=== PATIENT | male | born 1955 ===

== ENCOUNTER 2017-06-14 12:34 | Emergency (ER) | payer OTHER ==
[2017-06-14 12:35] VITALS: BMI 29.8
[2017-06-14] MEDS ORDERED: Lidocaine 5% Patch TD STA (13:21)
--- NOTE | 2017-06-14 13:24 | C.PDOC ---
History Of Present Illness LOWER BACK PAIN X 4 DAYS. pain over buttock/sacral area. NO TRAUMA LOCALIZED WORSE W MOVEMENT. PS OCC R SCIATICA PAIN BUT CURRENT PAIN "DIFFERENT" FROM PRIOR. NO ASSOC FEVER, WEAK NUMB, URINARY SX. ALSO CONCERNED FOR ELEVATED BP. PS ON CURRENT BP MEDS X 2 MONTHS, UNK HOW WELL CONTROLLED W NEW MEDS. PENDING PMD EVAL NEXT WEEK EXAM MILD DIST NONTOXIC BACK +SPASM LOWER BACK SACRAL AREA LIMITED FULL EXTENSION ATRAUM SKIN NEG NEURO NEG GAIT WNL MDM ON BYSTOLIC 10 MG QD AND LOSARTAN/HCTZ 100/25 QD. ADVISED INCREASE BYSTOLIC TO 20 MG QD PENDING PMD REEVAL Time Seen by Provider: 06/14/17 13:06 Chief Complaint (Nursing): Back Pain History Per: Patient History/Exam Limitations: no limitations Onset/Duration Of Symptoms: Days (4) Current Symptoms Are (Timing): Still Present Previous Symptoms: Back Pain (right sided sciatica) Exacerbating Factor(s): Movement Past Medical History Reviewed: Historical Data, Nursing Documentation, Vital Signs Vital Signs: Last Vital Signs Temp 97.6 F 06/14/17 12:51 Pulse 61 06/14/17 12:51 Resp 20 06/14/17 12:51 BP 171/114 H 06/14/17 12:51 Pulse Ox 97 06/14/17 13:35 - Medical History PMH: CVA, Diabetes, HTN, Hypercholesterolemia, TIA (october 02, 2014) Denies: Chronic Kidney Disease Surgical History: Appendectomy, Endoscopy - [facility] Procedures OCCUPATIONAL THERAPY (11/10/14) OTHER SPEECH THERAPY (11/05/14) PHYSICAL THERAPY NEC (11/05/14) RESECTION OF APPENDIX, PERCUTANEOUS ENDOSCOPIC APPROACH (12/10/15) Family History: States: No Known Family Hx, Unknown Family Hx - Social History Hx Tobacco Use: Yes Hx Alcohol Use: Yes (social) Hx Substance Use: No - Immunization History Hx Tetanus Toxoid Vaccination: No Hx Influenza Vaccination: Yes Hx Pneumococcal Vaccination: No Review Of Systems Constitutional: Negative for: Fever Genitourinary: Negative for: Dysuria, Hematuria Musculoskeletal: Positive for: Back Pain Neurological: Negative for: Weakness, Numbness Physical Exam - Physical Exam Appears: Non-toxic, Other (mild distress) Skin: Normal Color Head: Atraumatic, Normacephalic Neck: Supple Back: Muscle Spasm (lower back), Other (sacral area with limited full extension) Extremity: Normal ROM, No Deformity, No Swelling Neurological/Psych: Oriented x3, Normal Speech, Normal Cognition, Normal Motor, Normal Sensation Gait: Steady ED Course And Treatment O2 Sat by Pulse Oximetry: 97 (RA) Pulse Ox Interpretation: Normal - Other Rad SACRUM X-Ray: Interpreted by Me (NEG) Disposition Counseled Patient/Family Regarding: Studies Performed, Diagnosis, Need For Followup, Rx Given - Disposition Referrals: YOUR,PMD [Other] Disposition: HOME/ ROUTINE Disposition Time: 13:54 Condition: IMPROVED Additional Instructions: TAKE BYSTOLIC 2 TABS DAILY, CONTINUE LOSARTAN/HCTZ PRESCRIBED. FOLLOW UP WITH YOUR PMD SCHEDULED. Prescriptions: Acetaminophen [Tylenol Extra Strength] 2 tab PO Q6 #30 tablet Cyclobenzaprine [Flexeril] 10 mg PO TID #15 tab Lidocaine 5% [Lidoderm] 1 ea TD PRN PRN #10 patch PRN Reason: Pain, Moderate (4-7) Naproxen 500 mg PO BID #30 tab Instructions: Acute Low Back Pain (ED) Forms: [employer] (Macedonian) Print Language: CHINESE - Clinical Impression Clinical Impression: Low back pain - Scribe Statement The provider has reviewed the documentation as recorded by the Juanjose Villegas Provider Attestation: All medical record entries made by the Juanjose were at my direction and personally dictated by me. I have reviewed the chart and agree that the record accurately reflects my personal performance of the history, physical exam, medical decision making, and the department course for this patient. I have also personally directed, reviewed, and agree with the discharge instructions and disposition.
[2017-06-14] MEDS ORDERED: Lidocaine 5% Patch TD ONE (13:28)
[2017-06-14 14:13] VITALS: BP 180/70; PULSE 58; RESP 18; TEMP 97; O2SAT 99
--- NOTE | 2017-06-14 14:52 | RAD ---
PROCEDURE: Radiographs of the Sacrum and Coccyx HISTORY: PAIN COMPARISON: None available. TECHNIQUE: Frontal and lateral views of the sacrum and coccyx FINDINGS: BONES: Sacrum and coccyx unremarkable. No fracture or focal lesion. SACROILIAC JOINTS: Trace inferior right sclerotic arthrosis noted OTHER FINDINGS: Bilateral hip mild osteoarthrosis noted. Right hemipelvic phleboliths. Minimal right L5-S1 and lesser left L5-S1 facet hypertrophic arthrosis. IMPRESSION: No sacral coccygeal fracture or lytic lesions. Bilateral hip, bilateral L5-S1 facet an asymmetrical inferior right S site trace sclerotic arthrosis
== END 2017-06-14 14:14 | disposition home or self-care (01) ==
LOC: C.ER 12:34
DX: M54.5 Low back pain (principal)
CPT/HCPCS: 72220; 96372; 99284; J1885

== ENCOUNTER 2017-08-01 07:43 | Day surgery (SDC) | payer OTHER ==
[2017-08-01 08:09] VITALS: BMI 29.0
[2017-08-01] MEDS ORDERED: Lactated Ringer's 1,000 ML IV ONE (09:53)
[2017-08-01] MEDS ORDERED: Midazolam 2 MG/2 ML VIAL ONE (10:42)
[2017-08-01] MEDS ORDERED: Propofol 10 mg/ml Inj (20 ML) ONE ×2 (10:42→11:22)
[2017-08-01 11:42] VITALS: TEMP 96.9; O2SAT 100
[2017-08-01 13:15] VITALS: BP 152/99; PULSE 64; RESP 13
== END 2017-08-01 12:40 | disposition home or self-care (01) ==
LOC: C.ENDO 07:43
PROVIDERS: ATTEND Internal Medicine Gastroenterology
DX: Z12.11 Encounter for screening for malignant neoplasm of colon (principal); D12.5 Benign neoplasm of sigmoid colon; K64.8 Other hemorrhoids; K57.90 Diverticulosis of intestine, part unspecified, without perforation or abscess without bleeding
CPT/HCPCS: 45380; 45385; 88305; J0360; J2250; J2704; J3010; J7120

== ENCOUNTER 2018-02-06 08:39 | Day surgery (SDC) | payer OTHER ==
[2018-02-06] MEDS ORDERED: Lactated Ringer's 500 ML IV ONE (11:56)
--- NOTE | 2018-02-06 11:56 | CP.SDSHP ---
Same Day Surgery H & P - History Proposed Procedure: colonoscopy Pre-Op Diagnosis: history of polyps - Previous Medical/Surgical History Cardiac: Hypertension Endocrine/Metabolic: Diabetes - Allergies Allergies: Allergies No Known Allergies Allergy (Verified 06/14/17 12:55) - Physical Exam General Appearance: NAD Vital Signs: Vital Signs 02/06/18 09:05 Temperature 97.3 F L Pulse Rate 57 L Respiratory 18 Rate Blood Pressure 152/101 H O2 Sat by Pulse 97 Oximetry Mental Status: Alert & Oriented x3 Neuro: WNL Heart: WNL Lungs: WNL GI: WNL - {Optional Preform as Required} Abdomen: WNL - Impression Pt. Evaluated Today:Candidate for Anesthesia & Procedure: Yes - Date & Time Date: 02/06/18 Time: 11:56 Short Stay Discharge - Short Stay Discharge Admitting Diagnosis/Reason for Visit: H/O/ COLON POLYPS Disposition: HOME/ ROUTINE
[2018-02-06] MEDS ORDERED: Propofol 10 mg/ml Inj (20 ML) ONE (12:03)
[2018-02-06] MEDS ORDERED: Midazolam 2 MG/2 ML VIAL ONE (12:03)
[2018-02-06 14:26] VITALS: TEMP 97
[2018-02-06 14:33] VITALS: O2SAT 98
[2018-02-06 14:40] VITALS: BP 166/103; PULSE 60; RESP 18
== END 2018-02-06 13:45 | disposition home or self-care (01) ==
LOC: C.ENDO 08:39
PROVIDERS: ATTEND Internal Medicine Gastroenterology
DX: D12.0 Benign neoplasm of cecum (principal); D12.2 Benign neoplasm of ascending colon; D12.3 Benign neoplasm of transverse colon; D12.5 Benign neoplasm of sigmoid colon; K64.8 Other hemorrhoids
CPT/HCPCS: 45380; 82948; 88305; J2250; J2704; J7120

== ENCOUNTER 2018-06-10 15:32 | Emergency (ER) | payer OTHER ==
[2018-06-10 15:33] VITALS: BMI 29.0
[2018-06-10 16:02] VITALS: O2SAT 96
[2018-06-10 16:19] LABS: BASO # 0.1 K/uL (0.0-0.2); BASO % 0.4 % (0.0-2.0); EOS % 0.2 % (0.0-4.0); HEMOGLOBIN 16.1 g/dL (12.0-18.0); LYMPH # 1.2 K/uL (1.0-4.3); LYMPH % 10.3 % (20.0-40.0); MEAN CELL VOLUME 86.4 fL (80.0-94.0); MEAN CORPUSCULAR HEMOGLOBIN 28.9 pg (27.0-31.0); MEAN CORPUSCULAR HGB CONC 33.4 g/dL (33.0-37.0); MEAN PLATELET VOLUME 10.7 fL (7.2-11.7); MONO # 1.3 K/uL (0.0-0.8); MONO % 11.9 % (0.0-10.0); NEUT # 8.6 K/uL (1.8-7.0); NEUT % 77.2 % (50.0-75.0); NRBC % 0.1 % (0.0-2.0); RBC 5.58 Mil/uL (4.40-5.90); RED CELL DISTRIBUTION WIDTH 14.4 % (11.5-14.5)
[2018-06-10 16:27] LABS: WHITE BLOOD COUNT 11.2 K/uL (4.8-10.8)
[2018-06-10 16:36] LABS: ALB/GLOB RATIO 1.4 (1.0-2.1); ALBUMIN 4.5 g/dL (3.5-5.0); ALT/SGPT 21 U/L (21-72); AST/SGOT 19 U/L (17-59); BLOOD UREA NITROGEN 29 mg/dL (9-20); CALCIUM 9.7 mg/dl (8.6-10.4); GFR NON-AFRICAN AMERICAN 51
--- NOTE | 2018-06-10 16:49 | RAD ---
HISTORY: r/o infiltrate COMPARISON: Chest x-ray performed 12/09/15 TECHNIQUE: Chest, one view. FINDINGS: LUNGS: No focal consolidation. Please note that chest x-ray has limited sensitivity for the detection of pulmonary masses. PLEURA: No significant pleural effusion identified. No definite pneumothorax . CARDIOVASCULAR: Borderline cardiomegaly. Ectatic aorta. No significant atherosclerotic calcification present. OSSEOUS STRUCTURES: Degenerative changes of the spine. VISUALIZED UPPER ABDOMEN: Unremarkable. OTHER FINDINGS: None. IMPRESSION: No focal consolidation. Borderline cardiomegaly. Ectatic aorta.
[2018-06-10] MEDS ORDERED: Potassium Chloride 20 mEq ER Tab PO STA (17:32)
[2018-06-10] MEDS ORDERED: Potassium Chloride 20 mEq ER Tab PO ONE (17:41)
--- NOTE | 2018-06-10 18:16 | C.PDOC ---
History Of Present Illness 62 y/o male presents to ED with c/o intermittent dizziness for 3 weeks. Patient saw PMD for same complaints, given medications with no improvement. Patient denies nausea, vomiting, chest pain, sob, headache, blurry or double vision. No other physical complaints at this time. Time Seen by Provider: 06/10/18 15:57 Chief Complaint (Nursing): Dizziness/Lightheaded History Per: Patient History/Exam Limitations: no limitations Onset/Duration Of Symptoms: Days Current Symptoms Are (Timing): Still Present Past Medical History Reviewed: Historical Data, Nursing Documentation, Vital Signs Vital Signs: Last Vital Signs Temp 99.5 F 06/10/18 16:01 Pulse 104 H 06/10/18 16:01 Resp 20 06/10/18 16:01 BP 162/78 H 06/10/18 16:01 Pulse Ox 96 06/10/18 16:01 - Medical History PMH: CVA, Diabetes, Gastritis, HTN, Hypercholesterolemia, TIA (october 02, 2014) Surgical History: Appendectomy, Endoscopy - [facility] Procedures OCCUPATIONAL THERAPY (11/10/14) OTHER SPEECH THERAPY (11/05/14) PHYSICAL THERAPY NEC (11/05/14) RESECTION OF APPENDIX, PERCUTANEOUS ENDOSCOPIC APPROACH (12/10/15) Family History: States: No Known Family Hx - Social History Hx Tobacco Use: Yes Hx Alcohol Use: Yes (social) Hx Substance Use: No - Immunization History Hx Tetanus Toxoid Vaccination: No Hx Influenza Vaccination: Yes Hx Pneumococcal Vaccination: No Review Of Systems Constitutional: Negative for: Fever, Chills Cardiovascular: Negative for: Chest Pain Gastrointestinal: Negative for: Nausea, Vomiting, Abdominal Pain Neurological: Positive for: Dizziness. Negative for: Weakness, Numbness, Headache Physical Exam - Physical Exam Appears: Non-toxic, No Acute Distress Skin: Warm, Dry, No Rash Head: Atraumatic, Normacephalic Eye(s): bilateral: Normal Inspection (No nystagmus) Oral Mucosa: Moist Neck: Normal ROM, Supple Cardiovascular: Rhythm Regular Respiratory: Normal Breath Sounds, No Rales, No Rhonchi, No Wheezing Gastrointestinal/Abdominal: Soft, No Tenderness, No Guarding, No Rebound Extremity: Normal ROM, Capillary Refill (<2 seconds) Neurological/Psych: Oriented x3, Normal Speech, Normal Cognition, Normal Motor, Normal Sensation ED Course And Treatment - Laboratory Results Result Diagrams: 06/10/18 16:16 06/10/18 16:16 O2 Sat by Pulse Oximetry: 96 (RA) Pulse Ox Interpretation: Normal Disposition - Disposition Referrals: Alirio Fajardo, [Non-Staff] - Disposition: HOME/ ROUTINE Disposition Time: 17:40 Condition: GOOD Additional Instructions: STAN KAN, thank you for letting us take care of you today. The emergency medical care you received today was directed at your acute symptoms. If you were prescribed any medication, please fill it and take as directed. It may take several days for your symptoms to resolve. Return to the Emergency Department if your symptoms worsen, do not improve, or if you have any other problems. Please contact your doctor or call one of the physicians/clinics you have been referred to that are listed on the Patient Visit Information form that is included in your discharge packet. Bring any paperwork you were given at discharge with you along with any medications you are taking to your follow up visit. Our treatment cannot replace ongoing medical care by a primary care provider outside of the emergency department. Thank you for allowing the [facility] team to be part of your care today. Follow up with your primary care doctor this week for re-evaluation and further management. STAN KAN, priscilla por dejarnos cuidar de usted hoy. La atencin mdica de emergencia que recibi hoy se dirigi a alecia sntomas agudos. Si le recetaron algn medicamento, llnelo y tmelo segn las indicaciones. Los sntomas pueden tardar varios shaver en resolverse. Regrese al Departamento de Emergencias si alecia sntomas empeoran, no mejoran o si tiene otros problemas. Comunquese con mera mdico o llame a richmond de los mdicos / clnicas a los que hsu sido referido que figuran en el formulario de Informacin de visita al paciente que se incluye en mera paquete de deborah. Lleve todos los documentos que le entregar on al momento del deborah junto con todos los medicamentos que est tomando para mera visita de seguimiento. Nuestro tratamiento no puede reemplazar la atencin mdica continua por parte de un proveedor de atencin primaria fuera del departamento de emergencias. Priscilla por permitir que el equipo de [facility] sea parte de mera atencin hoy. Josefina un seguimiento con mera mdico de atencin primaria esta semana para reevaluar y administrar ms. Instructions: Hypokalemia (DC) Forms: [employer] (Latvian) Print Language: SWISS - Clinical Impression Clinical Impression: Hypokalemia - Scribe Statement The provider has reviewed the documentation as recorded by the Scribe Alex Sheridan All medical record entries made by the Scribe were at my direction and personally dictated by me. I have reviewed the chart and agree that the record accurately reflects my personal performance of the history, physical exam, medical decision making, and the department course for this patient. I have also personally directed, reviewed, and agree with the discharge instructions and disposition.
[2018-06-10 18:18] LABS: T3 1.19 nmol/L (1.49-2.60)
[2018-06-10 18:52] VITALS: BP 149/91; PULSE 92; RESP 18; TEMP 98
== END 2018-06-10 18:52 | disposition home or self-care (01) ==
LOC: C.ER 15:32
DX: E87.6 Hypokalemia (principal)